=== PATIENT | female | born 1980 | race Caucasian/White ===

== ENCOUNTER 2017-05-09 11:19 | Emergency (ER) | payer BC, OTHER ==
[2017-05-09] MEDS: KETOROLAC 30 MG/ML INJ. IV ×2 (12:33)
[2017-05-09] MEDS: IV NORMAL SALINE 1000ML BAG 1,000 ML IV ×2 (12:33)
== END 2017-05-09 13:38 | disposition home or self-care (01) ==
LOC: ER 11:19
DX: R51 Headache (principal); R11.0 Nausea; R50.9 Fever, unspecified; M79.1 Myalgia; F10.20 Alcohol dependence, uncomplicated; Z88.2 Allergy status to sulfonamides
CPT/HCPCS: 96361; 96374; 99284-25; J1885; J7030